=== PATIENT | female | born 1995 | race Two or more races ===

== ENCOUNTER 2024-04-23 06:15 | Emergency (ER) | payer OTHER ==
[~2024-04-23] VITALS: Ht 152.4 cm; Wt 87.3 kg
[2024-04-23 06:25] VITALS: BP 128/82
[2024-04-23 06:49] VITALS: PULSE 67; RESP 18; O2SAT 98
[2024-04-23] MEDS ORDERED: COROSUS RIGHT EAR (07:01)
[2024-04-23] MEDS ORDERED: AUG875T PO (07:01)
== END 2024-04-23 07:07 | disposition home or self-care (01) ==
LOC: ER 06:15
DX: H60.91 Unspecified otitis externa, right ear (principal); H66.91 Otitis media, unspecified, right ear; F17.210 Nicotine dependence, cigarettes, uncomplicated; Z79.899 Other long term (current) drug therapy

== ENCOUNTER 2024-05-08 02:15 | Emergency (ER) | payer OTHER ==
[~2024-05-08] VITALS: Ht 152.4 cm; Wt 89.6 kg
[~2024-05-08 02:15] MED LIST: AUG875T PO; COROSUS RIGHT EAR
[2024-05-08] MEDS ORDERED: METH4PAK PO (03:20)
[2024-05-08] MEDS ORDERED: AUG875T PO (03:20)
[2024-05-08 03:28] VITALS: BP 116/51; PULSE 75; RESP 16; TEMP 98.2; O2SAT 97
== END 2024-05-08 03:30 | disposition home or self-care (01) ==
LOC: ER 02:15
DX: H60.92 Unspecified otitis externa, left ear (principal); F17.210 Nicotine dependence, cigarettes, uncomplicated; F12.90 Cannabis use, unspecified, uncomplicated; Z79.899 Other long term (current) drug therapy